=== PATIENT | female | born 1940 | race Caucasian/White ===

== ENCOUNTER → 2016-07-03 | Outpatient (CLI) | payer MEDICARE, BC | LOC: LAB 08:53 | DX: Z51.81 Encounter for therapeutic drug level monitoring (principal); Z79.899 Other long term (current) drug therapy ==

== ENCOUNTER → 2016-07-04 | Outpatient (CLI) | payer MEDICARE, BC | LOC: LAB 09:50 | DX: M06.9 Rheumatoid arthritis, unspecified (principal); Z79.899 Other long term (current) drug therapy ==

== ENCOUNTER → 2016-09-17 | Outpatient (CLI) | payer MEDICARE, BC | LOC: LAB 08:01 | DX: I10 Essential (primary) hypertension (principal) ==

== ENCOUNTER → 2016-10-01 | Outpatient (CLI) | payer MEDICARE, BC | LOC: LAB 07:18 | DX: E87.1 Hypo-osmolality and hyponatremia (principal) ==

== ENCOUNTER → 2016-10-04 | Outpatient (CLI) | payer MEDICARE, BC | LOC: LAB 08:30 | DX: R41.0 Disorientation, unspecified (principal) ==

== ENCOUNTER → 2016-10-30 | Outpatient (CLI) | payer MEDICARE, BC | LOC: LAB 09:21 | DX: E87.1 Hypo-osmolality and hyponatremia (principal) ==

== ENCOUNTER → 2016-11-07 | Outpatient (CLI) | payer MEDICARE, BC | LOC: LAB 09:54 | DX: E87.1 Hypo-osmolality and hyponatremia (principal) ==

== ENCOUNTER → 2016-11-14 | Outpatient (CLI) | payer MEDICARE, BC | LOC: LAB 10:53 | DX: Z01.89 Encounter for other specified special examinations (principal) ==

== ENCOUNTER → 2016-12-31 | Outpatient (CLI) | payer MEDICARE, BC ==
[2016-12-31 11:43] LABS: BUN/CREATININE RATIO 17.5 (6.0-26.0); POTASSIUM 3.2 mmol/L (3.6-5.0)
== END ==
LOC: LAB 11:09
PROVIDERS: Family Medicine
DX: E87.1 Hypo-osmolality and hyponatremia (principal)

== ENCOUNTER → 2017-01-15 | Outpatient (CLI) | payer MEDICARE, BC ==
[2017-01-15 11:20] LABS: BUN/CREATININE RATIO 17.9 (6.0-26.0); CALCIUM 9.8 mg/dL (8.4-10.2); POTASSIUM 4.5 mmol/L (3.6-5.0)
== END ==
LOC: LAB 09:22
PROVIDERS: Family Medicine
DX: E87.6 Hypokalemia (principal)

== ENCOUNTER → 2017-02-12 | Outpatient (CLI) | payer MEDICARE, BC ==
[2017-02-12 10:50] LABS: BUN/CREATININE RATIO 16.8 (6.0-26.0); CALCIUM 9.6 mg/dL (8.4-10.2); POTASSIUM 3.9 mmol/L (3.6-5.0)
== END ==
LOC: LAB 09:56
PROVIDERS: Family Medicine
DX: E87.1 Hypo-osmolality and hyponatremia (principal)

== ENCOUNTER → 2017-03-01 | Outpatient (CLI) | payer MEDICARE, BC ==
[2017-03-01 08:43] LABS: BUN/CREATININE RATIO 17.7 (6.0-26.0); CALCIUM 9.5 mg/dL (8.4-10.2); POTASSIUM 3.6 mmol/L (3.6-5.0)
== END ==
LOC: LAB 08:18
PROVIDERS: Family Medicine
DX: I10 Essential (primary) hypertension (principal)

== ENCOUNTER → 2017-03-15 | Outpatient (CLI) | payer MEDICARE, BC | LOC: RAD 13:53 | DX: M79.661 Pain in right lower leg (principal); M79.89 Other specified soft tissue disorders ==

== ENCOUNTER → 2017-03-19 | Outpatient (CLI) | payer MEDICARE, BC ==
[2017-03-19 09:13] LABS: HEMATOCRIT 32.8 % (37.0-47.0); HEMOGLOBIN 10.4 g/dL (12.5-16.0); MEAN PLATELET VOLUME 10.4 fl (7.4-10.4); RED BLOOD COUNT 3.51 M/mm3 (4.10-5.30); RED CELL DISTRIBUTION WIDTH 15.7 % (11.5-14.5); WHITE BLOOD COUNT 9.5 K/mm3 (4.8-10.8)
[2017-03-19 09:21] LABS: BUN/CREATININE RATIO 15.1 (6.0-26.0); CALCIUM 9.4 mg/dL (8.4-10.2); POTASSIUM 3.5 mmol/L (3.6-5.0)
== END ==
LOC: LAB 08:36
DX: R22.41 Localized swelling, mass and lump, right lower limb (principal)

== ENCOUNTER 2017-03-29 16:22 | Emergency (ER) | payer MEDICARE, BC ==
[~2017-03-29] VITALS: Ht 149.9 cm; Wt 50.0 kg
[2017-03-29] MEDS ORDERED: BENADRYL 5050 MG/CAP ×2 (16:40)
[2017-03-29] MEDS ORDERED: MIRAPEX1 MG PO (16:41)
[2017-03-29] MEDS ORDERED: GOOD NEIGHBOR P20 MG PO (16:41)
[2017-03-29] MEDS ORDERED: PREDNISONE 5MG5 MG PO (16:42)
[2017-03-29] MEDS ORDERED: POTASSIUM CHLO10 ME7 PO (16:42)
[2017-03-29] MEDS ORDERED: VITAMIN D32000 UNIT PO (16:43)
[2017-03-29] MEDS ORDERED: NORCO 325 MG-7.1 TA1 PO (16:43)
[2017-03-29] MEDS ORDERED: CELECOXIB200 M1 PO (16:43)
[2017-03-29] MEDS ORDERED: CLARITIN 1010 MG/TAB PO (16:44)
[2017-03-29] MEDS ORDERED: ARAVA 20MG TABL20 MG PO (16:44)
[2017-03-29] MEDS ORDERED: LEVO-T88 MCG PO (16:44)
[2017-03-29] MEDS ORDERED: CLOPIDOGREL75 M2 PO (16:44)
[2017-03-29] MEDS ORDERED: ADULT ASPIRIN R81 MG PO (16:44)
[2017-03-29] MEDS ORDERED: FERROUS SULFAT325 M4 PO (16:45)
[2017-03-29] MEDS ORDERED: NORVASC2.5 MG PO (16:45)
[2017-03-29] MEDS ORDERED: DITROPAN XL 5MG5 M1 PO (16:45)
[2017-03-29] MEDS ORDERED: CRANBERRY FRUI425 MG PO (16:45)
[2017-03-29 17:17] LABS: HEMATOCRIT 33.9 % (37.0-47.0); HEMOGLOBIN 10.7 g/dL (12.5-16.0); MEAN CELL VOLUME 96 fl (78-100); MEAN CORPUSCULAR HEMOGLOBIN 30 pg (27-31); MEAN CORPUSCULAR HGB CONC 32 g/dL (33-37); MEAN PLATELET VOLUME 10.4 fl (7.4-10.4); PLATELET COUNT 179 K/mm3 (130-400); RED BLOOD COUNT 3.54 M/mm3 (4.10-5.30); RED CELL DISTRIBUTION WIDTH 15.7 % (11.5-14.5); WHITE BLOOD COUNT 7.7 K/mm3 (4.8-10.8)
[2017-03-29 17:25] LABS: ALBUMIN 3.6 g/dL (3.5-5.0); BUN/CREATININE RATIO 14.9 (6.0-26.0); CALCIUM 9.3 mg/dL (8.4-10.2); TOTAL BILIRUBIN 0.7 mg/dL (0.2-1.3); TOTAL PROTEIN 6.9 g/dL (6.3-8.2)
[2017-03-29 17:32] LABS: LYMPHOCYTE 13 % (20-51); NEUTROPHILS 80 % (42-75)
[2017-03-29 17:33] LABS: MONOCYTE 6 % (3-10)
[2017-03-29] MEDS ORDERED: CEPHALEXIN500 M1 PO (17:49)
[2017-03-29] MEDS ORDERED: VIBRAMYCIN HYC100 MG PO (17:49)
[2017-03-29 18:05] VITALS: BP 158/70
== END 2017-03-29 18:05 | disposition home or self-care (01) ==
LOC: ED 16:22
PROVIDERS: Physician Assistant
DX: L03.116 Cellulitis of left lower limb (principal); L03.115 Cellulitis of right lower limb; I10 Essential (primary) hypertension; G25.81 Restless legs syndrome; K21.9 Gastro-esophageal reflux disease without esophagitis; E03.9 Hypothyroidism, unspecified; Z86.73 Personal history of transient ischemic attack (TIA), and cerebral infarction without residual deficits; M06.9 Rheumatoid arthritis, unspecified; Z79.02 Long term (current) use of antithrombotics/antiplatelets; Z79.82 Long term (current) use of aspirin; J30.9 Allergic rhinitis, unspecified

== ENCOUNTER → 2017-04-02 | Outpatient (CLI) | payer MEDICARE, BC ==
[2017-03-29 18:05] VITALS: BP 158/70
[~2017-04-02] MED LIST: ADULT ASPIRIN R81 MG PO; ARAVA 20MG TABL20 MG PO; BENADRYL 5050 MG/CAP; CELECOXIB200 M1 PO; CEPHALEXIN500 M1 PO; CLARITIN 1010 MG/TAB PO; CLOPIDOGREL75 M2 PO; CRANBERRY FRUI425 MG PO; DITROPAN XL 5MG5 M1 PO; FERROUS SULFAT325 M4 PO; GOOD NEIGHBOR P20 MG PO; LEVO-T88 MCG PO; MIRAPEX1 MG PO; NORCO 325 MG-7.1 TA1 PO; NORVASC2.5 MG PO; POTASSIUM CHLO10 ME7 PO; PREDNISONE 5MG5 MG PO; VIBRAMYCIN HYC100 MG PO; VITAMIN D32000 UNIT PO
[2017-04-02 10:28] LABS: BUN/CREATININE RATIO 19.6 (6.0-26.0); CALCIUM 9.3 mg/dL (8.4-10.2); POTASSIUM 3.7 mmol/L (3.6-5.0)
== END ==
LOC: LAB 09:42
PROVIDERS: Family Medicine
DX: E87.1 Hypo-osmolality and hyponatremia (principal)

== ENCOUNTER → 2017-04-10 | Outpatient (CLI) | payer MEDICARE, BC ==
[2017-03-29 18:05] VITALS: BP 158/70
[2017-04-10 10:18] LABS: BUN/CREATININE RATIO 18.8 (6.0-26.0); CALCIUM 9.8 mg/dL (8.4-10.2); POTASSIUM 3.6 mmol/L (3.6-5.0)
== END ==
LOC: LAB 09:33
PROVIDERS: Family Medicine
DX: E87.1 Hypo-osmolality and hyponatremia (principal)

== ENCOUNTER 2017-05-06 17:03 | Emergency (ER) | payer MEDICARE, BC ==
[2017-05-06] MEDS ORDERED: BACITRACIN TOPIC1 T1 TOP (18:14)
[2017-05-06] MEDS ORDERED: OXYCODONE PO ×2 (18:14→20:03)
[2017-05-06] MEDS ORDERED: CLEOCIN HCL300 MG PO (20:03)
[2017-05-06 20:15] VITALS: BP 140/74
== END 2017-05-06 20:15 | disposition home or self-care (01) ==
LOC: ED 17:03
DX: L03.116 Cellulitis of left lower limb (principal); L03.115 Cellulitis of right lower limb; L97.819 Non-pressure chronic ulcer of other part of right lower leg with unspecified severity; L97.829 Non-pressure chronic ulcer of other part of left lower leg with unspecified severity; L89.899 Pressure ulcer of other site, unspecified stage; I87.2 Venous insufficiency (chronic) (peripheral); S80.812A Abrasion, left lower leg, initial encounter; I10 Essential (primary) hypertension; M06.9 Rheumatoid arthritis, unspecified; G89.29 Other chronic pain; Z79.02 Long term (current) use of antithrombotics/antiplatelets; Z79.82 Long term (current) use of aspirin; Z88.2 Allergy status to sulfonamides; Z88.8 Allergy status to other drugs, medicaments and biological substances

== ENCOUNTER 2017-06-12 13:21 | Inpatient (IN) | payer MEDICARE, BC ==
[~2017-06-12] VITALS: Ht 149.9 cm; Wt 44.1 kg
[~2017-06-12 13:21] MED LIST changes: +AMERINET CHOICE1 PD4 IV; +ATORVASTATIN CA10 MG PO; +AUGMENTIN 875-1 EAC1 PO; +BACITRACIN TOPIC1 T1 TOP; +BENADRYL 5050 MG/CAP PO; +BENADRYL PO; +BIOTENE DRY MO237 ML MM; +CELEBREX 200MG200 MG PO; +CLEOCIN HCL300 MG PO; +CULTURELLE1 EACH PO; +FENTANYL1 EAC3 TD; +FEOSOL325 MG PO; +GENTAMICIN SULFA TP; +LEADER C 250 MG1 TAB PO; +LEVAQUIN 750MG750 M1 PO; +MASON NATURAL2000 IU PO; +MICONAZOLE NITR30 GM TP; +OXYCODONE PO; +SANTYL30 GM TP
[2017-06-12 13:25] VITALS: BP 165/81
[2017-06-12 15:30] LABS: PH-URINE 6.5 (5.0 - 8.0); URINE APPEARANCE CLEAR; URINE COLOR YELLOW
[2017-06-12 15:31] LABS: URINE BILIRUBIN NEGATIVE (NEGATIVE); URINE BLOOD NEGATIVE (NEGATIVE); URINE GLUCOSE NEGATIVE (NEGATIVE); URINE KETONE NEGATIVE (NEGATIVE); URINE LEUKOCYTE ESTERASE 1+ (NEGATIVE); URINE NITRATE NEGATIVE (NEGATIVE); URINE PROTEIN(semi-quant) NEGATIVE (NEGATIVE); URINE UROBILINOGEN NORMAL (NORMAL)
[2017-06-12 16:01] LABS: HEMATOCRIT 29.7 % (37.0-47.0); HEMOGLOBIN 9.2 g/dL (12.5-16.0); MEAN CELL VOLUME 93 fl (78-100); MEAN CORPUSCULAR HEMOGLOBIN 29 pg (27-31); MEAN CORPUSCULAR HGB CONC 31 g/dL (33-37); MEAN PLATELET VOLUME 10.1 fl (7.4-10.4); PLATELET COUNT 199 K/mm3 (130-400); RED BLOOD COUNT 3.21 M/mm3 (4.10-5.30); RED CELL DISTRIBUTION WIDTH 15.4 % (11.5-14.5); WHITE BLOOD COUNT 7.1 K/mm3 (4.8-10.8)
[2017-06-12 16:05] LABS: ALBUMIN 2.5 g/dL (3.5-5.0); BUN/CREATININE RATIO 11.7 (6.0-26.0); CALCIUM 8.4 mg/dL (8.4-10.2); POTASSIUM 3.7 mmol/L (3.6-5.0); TOTAL BILIRUBIN 0.3 mg/dL (0.2-1.3); TOTAL PROTEIN 5.3 g/dL (6.3-8.2)
[2017-06-12 17:52] LABS: LYMPHOCYTE 12 % (20-51); MONOCYTE 5 % (3-10); NEUTROPHILS 82 % (42-75)
[2017-06-12 18:47] VITALS: BP 146/82
[2017-06-13 06:33] VITALS: BP 182/98
[2017-06-13 10:00] VITALS: BP 161/82
[2017-06-13 18:49] VITALS: BP 155/85
[2017-06-14 06:40] VITALS: BP 163/81
[2017-06-14 18:00] VITALS: BP 166/91
[2017-06-15 06:40] VITALS: BP 174/94
[2017-06-15 18:52] VITALS: BP 146/81
[2017-06-16 06:21] VITALS: BP 141/75
[2017-06-16 18:57] VITALS: BP 123/76
[2017-06-17 06:21] VITALS: BP 171/87
[2017-06-17 07:36] LABS: BASO # 0.1 (0.02-0.10); EOS # 0.6 (0.04-0.40); EOS % 7.7 % (1.0-5.0); HEMATOCRIT 30.1 % (37.0-47.0); HEMOGLOBIN 9.7 g/dL (12.5-16.0); LYMPH# 1.1 (1.50-4.00); MEAN CELL VOLUME 91 fl (78-100); MEAN CORPUSCULAR HEMOGLOBIN 29 pg (27-31); MEAN CORPUSCULAR HGB CONC 32 g/dL (33-37); MEAN PLATELET VOLUME 10.3 fl (7.4-10.4); MONO # 0.7 (0.20-0.80); PLATELET COUNT 202 K/mm3 (130-400); RED BLOOD COUNT 3.32 M/mm3 (4.10-5.30); RED CELL DISTRIBUTION WIDTH 15.9 % (11.5-14.5); WHITE BLOOD COUNT 7.5 K/mm3 (4.8-10.8)
[2017-06-17 07:59] LABS: ALBUMIN 2.6 g/dL (3.5-5.0); BUN/CREATININE RATIO 14.1 (6.0-26.0); CALCIUM 8.6 mg/dL (8.4-10.2); POTASSIUM 3.6 mmol/L (3.6-5.0); TOTAL BILIRUBIN 0.3 mg/dL (0.2-1.3); TOTAL PROTEIN 5.5 g/dL (6.3-8.2)
[2017-06-17 14:32] LABS: PH-URINE 5.5 (5.0 - 8.0); URINE APPEARANCE HAZY; URINE BILIRUBIN NEGATIVE (NEGATIVE); URINE BLOOD NEGATIVE (NEGATIVE); URINE COLOR YELLOW; URINE GLUCOSE NEGATIVE (NEGATIVE); URINE KETONE NEGATIVE (NEGATIVE); URINE LEUKOCYTE ESTERASE NEGATIVE (NEGATIVE); URINE NITRATE NEGATIVE (NEGATIVE); URINE PROTEIN(semi-quant) NEGATIVE (NEGATIVE); URINE UROBILINOGEN NORMAL (NORMAL)
[2017-06-17 14:33] LABS: URINE MUCUS PRESENT (NOT PRESENT)
[2017-06-17 19:30] VITALS: BP 169/95
[2017-06-18 06:43] VITALS: BP 161/89
[2017-06-18 18:49] VITALS: BP 148/89
[2017-06-19 06:18] VITALS: BP 148/87
[2017-06-19 18:44] VITALS: BP 142/83
[2017-06-20 06:23] VITALS: BP 157/86
[2017-06-20 18:42] VITALS: BP 142/79
[2017-06-21 06:28] VITALS: BP 157/79
[2017-06-21 18:24] VITALS: BP 125/75
[2017-06-22 06:41] VITALS: BP 152/85
[2017-06-22 19:19] VITALS: BP 119/73
[2017-06-23 06:46] VITALS: BP 131/72
[2017-06-23 11:31] LABS: PH-URINE 5.5 (5.0 - 8.0); URINE APPEARANCE CLEAR; URINE BILIRUBIN NEGATIVE (NEGATIVE); URINE COLOR YELLOW; URINE GLUCOSE NEGATIVE (NEGATIVE); URINE KETONE NEGATIVE (NEGATIVE); URINE PROTEIN(semi-quant) NEGATIVE (NEGATIVE); URINE UROBILINOGEN NORMAL (NORMAL)
[2017-06-23 11:32] LABS: URINE BLOOD 50 ery/uL (NEGATIVE); URINE LEUKOCYTE ESTERASE 1+ (NEGATIVE); URINE NITRATE NEGATIVE (NEGATIVE)
[2017-06-23 18:18] VITALS: BP 151/86
[2017-06-24 06:46] LABS: HEMATOCRIT 24.4 % (37.0-47.0); MEAN CELL VOLUME 90 fl (78-100); MEAN CORPUSCULAR HEMOGLOBIN 29 pg (27-31); MEAN CORPUSCULAR HGB CONC 33 g/dL (33-37); MEAN PLATELET VOLUME 10.5 fl (7.4-10.4); PLATELET COUNT 195 K/mm3 (130-400); RED BLOOD COUNT 2.72 M/mm3 (4.10-5.30); WHITE BLOOD COUNT 9.3 K/mm3 (4.8-10.8)
[2017-06-24 07:12] VITALS: BP 159/84
[2017-06-24 07:19] LABS: ALBUMIN 2.3 g/dL (3.5-5.0); BUN/CREATININE RATIO 14.5 (6.0-26.0); CALCIUM 8.4 mg/dL (8.4-10.2); POTASSIUM 3.5 mmol/L (3.6-5.0); TOTAL BILIRUBIN 0.2 mg/dL (0.2-1.3); TOTAL PROTEIN 4.7 g/dL (6.3-8.2)
[2017-06-24 07:32] LABS: LYMPHOCYTE 16 % (20-51); MONOCYTE 6 % (3-10); NEUTROPHILS 68 % (42-75); OVALOCYTES 1+
[2017-06-24 19:00] VITALS: BP 177/89
[2017-06-25 06:22] VITALS: BP 148/82
[2017-06-25 19:08] VITALS: BP 122/69
[2017-06-26 06:29] VITALS: BP 149/80
[2017-06-26 18:40] VITALS: BP 123/69
[2017-06-27 06:13] LABS: BUN/CREATININE RATIO 16.6 (6.0-26.0); CALCIUM 8.8 mg/dL (8.4-10.2); POTASSIUM 3.6 mmol/L (3.6-5.0)
[2017-06-27 06:23] VITALS: BP 117/63
[2017-06-27] MEDS ORDERED: LEVAQUIN 750MG750 M1 PO (16:05)
[2017-06-27 18:17] VITALS: BP 114/69
[2017-06-28 06:21] VITALS: BP 137/69
== END 2017-06-28 11:44 | DRG 948 ==
LOC: MED/SURG 13:21
PROVIDERS: Family Medicine; Nurse Practitioner; ADMIT Physician Assistant
DX: R53.81 Other malaise (principal); L03.116 Cellulitis of left lower limb; E87.1 Hypo-osmolality and hyponatremia; L03.115 Cellulitis of right lower limb; Z66 Do not resuscitate; E03.9 Hypothyroidism, unspecified; R41.3 Other amnesia; S12.121D Other nondisplaced dens fracture, subsequent encounter for fracture with routine healing; Z86.73 Personal history of transient ischemic attack (TIA), and cerebral infarction without residual deficits; L89.321 Pressure ulcer of left buttock, stage 1; G25.81 Restless legs syndrome
CPT/HCPCS: J1885; J2543; J7512

== ENCOUNTER 2017-06-29 10:03 | Emergency (ER) | payer MEDICARE, BC ==
[2017-06-29 10:52] LABS: HEMATOCRIT 26.9 % (37.0-47.0); HEMOGLOBIN 8.5 g/dL (12.5-16.0); MEAN CELL VOLUME 92 fl (78-100); MEAN CORPUSCULAR HEMOGLOBIN 29 pg (27-31); MEAN CORPUSCULAR HGB CONC 32 g/dL (33-37); MEAN PLATELET VOLUME 10.4 fl (7.4-10.4); PLATELET COUNT 251 K/mm3 (130-400); RED BLOOD COUNT 2.93 M/mm3 (4.10-5.30); RED CELL DISTRIBUTION WIDTH 16.8 % (11.5-14.5); WHITE BLOOD COUNT 12.1 K/mm3 (4.8-10.8)
[2017-06-29 11:02] LABS: BUN/CREATININE RATIO 43.5 (6.0-26.0); CALCIUM 8.7 mg/dL (8.4-10.2); POTASSIUM 3.7 mmol/L (3.6-5.0)
[2017-06-29 11:09] LABS: LYMPHOCYTE 10 % (20-51); MONOCYTE 6 % (3-10); NEUTROPHILS 79 % (42-75)
[2017-06-29 11:11] LABS: HYPOCHROMIA 2+
[2017-06-29 11:49] VITALS: BP 132/68
== END 2017-06-29 14:33 | disposition swing bed (61) ==
LOC: ED 10:03
PROVIDERS: Family Medicine
DX: E86.9 Volume depletion, unspecified (principal); D64.9 Anemia, unspecified; R00.0 Tachycardia, unspecified; E87.1 Hypo-osmolality and hyponatremia; M06.9 Rheumatoid arthritis, unspecified; L97.929 Non-pressure chronic ulcer of unspecified part of left lower leg with unspecified severity; L97.919 Non-pressure chronic ulcer of unspecified part of right lower leg with unspecified severity; Z86.73 Personal history of transient ischemic attack (TIA), and cerebral infarction without residual deficits; R60.9 Edema, unspecified; R01.1 Cardiac murmur, unspecified; Z79.82 Long term (current) use of aspirin; S12.100D Unspecified displaced fracture of second cervical vertebra, subsequent encounter for fracture with routine healing

== ENCOUNTER 2017-06-29 14:33 | Inpatient (IN) | payer MEDICARE, BC ==
[~2017-06-29] VITALS: Ht 149.9 cm; Wt 44.0 kg
[2017-06-29 14:38] VITALS: BP 132/69
[2017-06-29 16:17] VITALS: BP 132/69
[2017-06-29 18:03] LABS: URINE APPEARANCE HAZY; URINE BILIRUBIN NEGATIVE (NEGATIVE); URINE COLOR YELLOW; URINE GLUCOSE NEGATIVE (NEGATIVE); URINE KETONE 1+ (NEGATIVE); URINE NITRATE NEGATIVE (NEGATIVE); URINE PROTEIN(semi-quant) TRACE mg/dL (NEGATIVE); URINE UROBILINOGEN NORMAL (NORMAL)
[2017-06-29 18:04] LABS: URINE BLOOD TRACE (NEGATIVE); URINE LEUKOCYTE ESTERASE 1+ (NEGATIVE)
[2017-06-29 18:54] VITALS: BP 114/61
--- NOTE | 2017-06-29 19:00 | NUR ---
BEDSIDE REPORT RECIEVED FROM BISHNU MARTIN. PATIENT RESTING IN BED WITH DAUGHTER AT SIDE, CALL LIGHT WITHIN REACH AND BED ALARM ON.
--- NOTE | 2017-06-29 19:45 | NUR ---
hemanth report to Erika GOETZ
--- NOTE | 2017-06-29 21:10 | NUR ---
PATIENT RESTING IN BED. SHIFT ASSESSMENT COMPLETED AT THIS TIME. PATIENT A/O X4. RATING PAIN 7/10 IN LEFT LEG. LUNGS CTA, DENIES COUGH, REPORTS SHORTNESS OF BREATH WHEN ON SIDE. WOUNDS TO BLE DRESSED. MEPILEX ON COCCYX CDI. NECK BRACE FROM PREVIOUS INJURY CDI. FENTANYL PATCH TO LEFT SHOULDER CDI. PATIENT RESTRICTED TO 1000CC WATER FOR 24 HOURS WITH OTHER LIQUIDS AD FROILAN. HS MEDICATIONS GIVEN CRUSHED WITH APPLESAUCE. PATIENT WITHOUT FURTHER NEEDS, WILL CONTINUE TO MONITOR. CALL LIGHT WITHIN REACH AND BED ALARM ON.
[2017-06-30 02:04] VITALS: BP 116/62
--- NOTE | 2017-06-30 02:05 | NUR ---
PATIENT'S CHAIR ALARM SOUNDS, SO THIS RN GOES TO PATIENT'S ROOM TO INVESTIGATE. PATIENT IS OBSERVED SITTING ON THE WINDOWSILL NEXT TO HER RECLINER WITH THE FOOTREST STILL IN AN UP POSITION. THIS RN ASKS PATIENT WHERE IS SHE GOING, AND PATIENT TALKS GIBBERISH. THIS RN IS WALKING INTO PATIENT'S ROOM AND TOWARDS HER, PATIENT LURCHES HER BODY OFF OF THE WINDOWSILL JUST THIS NURSE GETS TO PATIENT. PATIENT'S BOTTOM LANDS ON THE HEATER DIRECTLY UNDER THE WINDOWSILL, AND SHE LURCHES AGAIN. THIS RN ATTEMPTS TO HUG PATIENT TO KEEP HER FROM FALLING, BUT IS ABLE TO ASSIST PATIENT TO THE FLOOR. PATIENT CONTINUES TO TALK GIBBERISH AND DOES NOT ANSWER QUESTIONS APPROPRIATELY. PATIENT'S NURSE, MAMIE IS NOTIFIED OF FALL, AND VITALS ARE OBTAINED. THIS RN AND MAMIE APPLY PATIENT'S GAITBELT AND LIFT HER TO A STANDING POSITION. PATIENT STANDS UP WITHOUT MUCH ASSISTANCE ONCE IN A STANDING POSITION AND THIS RN LOOKS AT PATIENT'S BACK AND BOTTOM FOR ANY SIGNS OF INJURY. PATIENT IS UNABLE TO PINPOINT ANY LOCATION OF PAIN, STATING "I HURT ALL THE TIME". PATIENT IS ASSISTED INTO A SITTING POSITION, AND BISHNU HATCH CHANGES PATIENT INTO GOWN, HER CLOTHES ARE WET FROM KNOCKING HER DRINK OVER, AND SHE ALSO PERFORMS A HEAD TO TOE ASSESSMENT.
--- NOTE | 2017-06-30 02:35 | NUR ---
DR. LEON NOTIFIED OF PATIENT'S FALL. NO INJURIES NOTED AND NO NEW ORDERS.
--- NOTE | 2017-06-30 06:30 | NUR ---
PATIENT'S DAUGHTER CONTACTED AT THE [facility] TO ASSIST WITH PATIENT'S BEHAVIORS. DAUGHTER NOTIFIED THAT STAFF HAD BEEN INTO PATIENT'S ROOM APPROXIMATELY 40 TIMES IN THE LAST 12 HOUR PERIOD. PATIENT'S DAUGHTER STATED SHE WOULD COME UP AND HELP SIT WITH PATIENT.
--- NOTE | 2017-06-30 06:46 | NUR ---
PATIENT'S DAUGHTER HERE TO SIT WITH LUIS AND NOTIFIED OF PATIENT'S FALL.
--- NOTE | 2017-06-30 07:10 | NUR ---
BEDSIDE REPORT GIVEN TO BISHNU GUTIERREZ. PATIENT RESTING IN BED WITH FAMILY AT SIDE, CALL LIGHT WITHIN REACH AND BED ALARM ON.
--- NOTE | 2017-06-30 08:00 | NUR ---
Pt daughter approaches this nurse and reports pt would like to go for a walk. This nurse enters room and pt tells nurse her legs are hurting and she thinks walking it out will help. Pt assisted up and ambulates with standby assist. Pt requires a lot of direction and cueing. Pt states she "just feels sick" and needs to return to room. Pt unable to state what is wrong. Pt begins speaking incomprehensible but continues to return to room and assisted back to bed. Pt daughter at bedside. Pt is able to answer my questions appropraitely but once finished with answer begins speaking incomprehensible again. Pt agrees to attempt to rest and daughter remains at bedside. Fall precautions in place.
--- NOTE | 2017-06-30 10:00 | NUR ---
Assist pt to BR then return to recliner. While in BR, pt produces dark green/black, loose, coffee grounds consistency BM.
--- NOTE | 2017-06-30 10:06 | NUR ---
Pt with c/o extreme pain, "especially in L leg." Reports pain is "right where the dressing is." Suggest that dressing be changed to see if that helps with pain. Pt is accepting of this. Placed santyl to all wound beds, wet/dry dressing and rewrapped with kerlix. Pt continues to c/o increased pain to L leg. Is reminded that fentanyl patch dose was increased and PO pain Rx 2 hours ago. Suggest that lights be turned off and pt lie back and attempt to rest. Pt is agreeable to this, lights out, call light in reach, clarence on bedside table next to pt, bed alarm set, adelso at bedside.
--- NOTE | 2017-06-30 11:00 | NUR ---
Pt calls, upon entering room, pt reports she is unable to remember what she called for but reports that her tongue hurts. Obtain tongue depressor and light, there is no discoloration or injury noted however tongue is very dry. Relay this information to pt and instruct her to drink more gatorade and that pain Rx will continue to make her mouth dry so she should use moisturize mouth often.
--- NOTE | 2017-06-30 12:15 | NUR ---
Pt refuses lunch tray. Reports that she is feeling nauseas and that pain is too much. Pt son voices concerns about possible stroke. Neuros checked at this time, all were negative.
--- NOTE | 2017-06-30 13:20 | NUR ---
Dr. Lake notified that pt has continued to be very anxious and restless. Pt confused at times with slurred speech or incomprehensible speech. Pt reports "feeling like shes gasping for air" and short of breath. Pulse 125 and SP02 98% on room air. Dr Lake notified of the above
--- NOTE | 2017-06-30 13:39 | NUR ---
Pt states cannot chew the ham and requests chicken but grocery store closed. Family bring hamburger but pt refuses to eat it. Family then brought in yogurt smoothie and pt works on this. Pt up in chair for lunch.
--- NOTE | 2017-06-30 15:44 | NUR ---
Neck brace removed per pt and daughter request.
--- NOTE | 2017-06-30 16:00 | NUR ---
Pt daughter at bedside. Explain that pt follows all commands and answers questions r/t stroke eval. Pt is having difficulty with forming words but is able to correct herself when asked to repeat. Explain to daughter that next eval method would be MRI and pt would need to be transferred if family wanted further investigation. Daughter denies this option. Request that all other family members leave room, close blinds and assist pt to lie on R side. Pt closes eyes, daughter remains at bedside.
[2017-06-30 18:45] VITALS: BP 133/53
--- NOTE | 2017-06-30 18:49 | NUR ---
Pt requests to move from recliner into bed. Pt states that she is "ready to go see Regan." Pt noted to be very pale, can hardly keep eyes open. Lips and mouth pale/rivero.
--- NOTE | 2017-06-30 19:18 | NUR ---
Bedside shift report to You Prieto RN
--- NOTE | 2017-06-30 20:00 | NUR ---
PATIENT RESTLESS IN BED AT STATES SHE "JUST WANTS TO BE WITH THE LORD." SHIFT ASSESSMENT COMPLETED AT THIS TIME. PATIENT A/O X4. RATING PAIN 8/10 TO LEFT LEG, PAIN PILL GIVEN. LUNGS CTA, DENIES COUGH, REPORTS SHORTNESS OF BREATH WITH LAYING ON SIDE. PATIENT IS VERY PALE IN COLOR. HEART RATE IS TACHY AND IRREGULAR. BLE ULCER DRESSINGS CDI. COCCYX REDDENED AND PATIENT C/O SEVERE PAIN TO THAT AREA, MEPILEX APPLIED FOR COMFORT. MOUTH DRY, SWABS PROVIDED TO HELP MOISTEN. BRUISE TO LOWER-MID BACK ALONG SPINE. CERVICAL COLLAR REMOVED PER PATIENT AND FAMILY WISHES FOR COMFORT. AIR MATTRESS ON BED TO HELP INCREASE COMFORT TO BONY PROMINANCES. FENTANYL PATCH ON RIGHT SHOULDER CDI. HS MEDICATIONS GIVEN CRUSHED IN APPLESAUCE. FAMILY TO REMAIN AT BEDSIDE ALL NIGHT. PATIENT AND FAMILY WITHOUT FURTHER NEEDS AT THIS TIME, WILL CONTINUE TO MONITOR. CALL LIGHT WITHIN REACH AND BED ALARM TURNED OFF WITH FAMILY EDUCATION AND REQUEST TO NOTIFY STAFF WHEN LEAVING THE ROOM.
--- NOTE | 2017-06-30 23:02 | NUR ---
FAMILY REQUESTING PATIENT RECIEVE LIQUID ATIVAN AND/OR MORPHINE FOR RESTLESSNESS AND UNRELIEVED PAIN.
--- NOTE | 2017-06-30 23:10 | NUR ---
DR. LEON NOTIFIED OF FAMILIES WISHES AND WILL PUT IN ORDERS.
--- NOTE | 2017-07-01 00:12 | NUR ---
PATIENT TO CALL FOR ASSISTANCE TO BATHROOM. PATIENT UNABLE TO URINATE BUT BRIEF WAS WET. PATIENT ASSISTED BACK TO BED. REPORTS NEW PRN PAIN MEDICATION DID NOT HELP AT ALL, HOWEVER PATIENT LOOKS AND ACTS CALMER AND DROWSY. PATIENT ENCOURAGED TO REST. FAMILY AT BEDSIDE. CALL LIGHT WITHIN REACH AND BED ALARM ON. WILL CONTINUE TO MONITOR AND PROVIDE PAIN MEDICATION WHEN AVAILABLE.
[2017-07-01 06:00] VITALS: BP 107/52
[2017-07-01 07:08] LABS: HEMATOCRIT 14.2 % (37.0-47.0); HEMOGLOBIN 4.5 g/dL (12.5-16.0)
--- NOTE | 2017-07-01 07:08 | NUR ---
CLERICAL METHODS ANALYST BRISA CALLED WITH A CRITICAL HGB OF 4.5. THIS VALUE PASSED ON TO PATIENT'S DAY SHIFT NURSE MURALI AND ONCOMING PROVIDER.
--- NOTE | 2017-07-01 07:20 | NUR ---
BEDSIDE REPORT RECEIVED FROM Odin GIMENEZ RN
--- NOTE | 2017-07-01 07:45 | NUR ---
Drake SEGURA APRN IN PATIENT'S ROOM AT THIS TIME. THIS NURSE AND PATIENT'S DAUGHTER KALYAN IN ROOM. PLAN OF CARE DISCUSSED. OPTION FOR PATIENT TO RECEIVE BLOOD TRANSFUSION AND FURTHER TREATMENTS FOR LOW HGB AND GI BLEED DISCUSSED. PATIENT'S DAUGHTER AND PATIENT WISH TO FORGO TREATMENT AND HAVE HOSPICE CARE. PLAN IS FOR PATIENT TO STAY HERE WITH PALLIATIVE CARE.
--- NOTE | 2017-07-01 07:55 | NUR ---
PATIENT LYING IN BED ON RIGHT SIDE WITH MOUTH OPEN. DAUGHTER IN ROOM. MOUTH VERY DRY. PATIENT PALE. RESPIRATIONS EVEN AND UNLABORED. HAS GAUZE WRAPS TO BILAT LOWER EXT. WITH LEGS ELEVATED ON PILLOW. PATIENT ANSWERS QUESTIONS WHEN SPOKEN TO SPEECH MUMMBLED AND DIFFICULT TO UNDERSTAND DUE TO PATIENT'S MOUTH BEING SO DRY BUT DOES SEEM TO ANSWER QUESTIONS APPROPRIATELY. ATTEMPTED TO MOISTEN MOUTH WITH SWAB BUT PATIENT STARTS MOANING AND TRYING TO SPIT OUT SWAB. BIOTENE SPRAYED IN PATIENT'S MOUTH. PATIENT REPORTS HAVING SEVERE PAIN IN BILAT LOWER EXT. REQUESTED PAIN MEDICATION.
--- NOTE | 2017-07-01 08:10 | NUR ---
PATIENT GIVEN 10 MG ROXANOL WITH NO PAIN RELIEF. PER Drake OSBORNE TO GIVE REMAINING 10 MG ROXANOL AT THIS TIME. PER Drake OSBORNE TO INCREASE PATIENT'S ROXANOL TO 20 MG EVERY 1 HOUR. .
--- NOTE | 2017-07-01 10:00 | NUR ---
PATIENT PROVIDED ORAL CARE. BRIEF DRY. PATIENT TURNED ONTO RIGHT SIDE. APPEARS TO BE RESTING COMFORTABLY AFTER BEING REPOSITIONED. PATIENT'S DAUGHTER REPORTS THAT SHE HAS HAD A COUPLE EPISODES WHERE SHE IS COUGHING. INFORMED FAMILY THAT IF SHE CONTINUES TO COUGH OR CHOKE TO INFORM STAFF AND WILL GET ORDER FOR ATROPINE DROPS. PATIENT'S FAMILY REMAINS AT BEDSIDE.
--- NOTE | 2017-07-01 10:00 | NUR ---
Clerical error made during registration. Patient should have been swing bed from admission. Correction made today.
--- NOTE | 2017-07-01 11:15 | NUR ---
PATIENT STARTING TO CHOKE AND COUGH MORE. ORDER RECEIVED FOR ATROPINE DROPS. ATROPINE DROPS ADMINISTERED. PATIENT REPOSITIONED. FAMILY IN ROOM.
--- NOTE | 2017-07-01 15:00 | NUR ---
THIS NURSE AND BISHNU MARTIN IN PATIENT'S ROOM TO TURN AND GIVE PAIN MEDICATION. PATIENT NO LONGER ANSWERING QUESTIONS, ALWAYS HAS EYES PARTIALLY OPEN. DOES WIDEN EYES WHEN BEING TURNED. PROVIDED PRN ROXANOL AND ATROPINE EYE DROPS. PATIENT'S BRIEF SATURATED IN URINE. CHANGED BRIEF AND PROVIDED MURTAZA CARE. PATIENT TURNED ONTO RIGHT SIDE. PATIENT STARTING TO HAVE PROLONGED TIME BETWEEN RESPIRATIONS AND RATTLING HEARD WITH RESPIRATIONS. PATIENT RESTING COMFORTABLY AFTER ROXANOL AND BEING REPOSITIONED. PATIENT'S FAMILY IN ROOM.
--- NOTE | 2017-07-01 17:30 | NUR ---
THIS NURSE AND BISHNU OROZCO IN WITH PATIENT. ORAL CARE PROVIDED. PATIENT GIVEN ROXANOL AND ATROPINE DROPS. PATIENT OPENS EYES WHEN SPOKEN TO AND SHAKES HEAD YES OR NO WHEN ASKED QUESTIONS. PATIENT'S BRIEF DRY. POSITIONED ONTO LEFT SIDE. PATIENT RESTING PEACEFULLY AFTER BEING REPOSITIONED IN BED. FAMILY REMAINS IN ROOM.
--- NOTE | 2017-07-01 21:46 | NUR ---
Pt lying R side upon entering room. Does not respond to verbal ques. Mouth open, face gaunt, pale and sunken. Pt does flicker eye lids in response to turning onto L side. No further responses. Son at bedside.
--- NOTE | 2017-07-01 23:56 | NUR ---
Mehreen Burnham APRN at pt bedside. Reports pt had agonal breathing for several minutes prior to pronouncing . Witnessed and confirmed final breath and no heart sounds at this time. Several family members at bedside upon pt her passing.
--- NOTE | 2017-07-02 00:21 | NUR ---
Contacted [facility], pt is not a candidate for organ, eye or tissue donation. Pt Son in law reports that he contacted [employer] deputy district customs director in [place] who will contact [facility] to picker / packer the pt body.
--- NOTE | 2017-07-02 00:45 | NUR ---
Rep from [facility] transports pt from facility on behalf of [facility] [place].
== END 2017-07-02 00:45 | disposition expired | DRG 948 ==
LOC: MED/SURG 14:33
PROVIDERS: ADMIT Family Medicine
DX: R53.81 Other malaise (principal); E87.1 Hypo-osmolality and hyponatremia; Z51.5 Encounter for palliative care; L97.829 Non-pressure chronic ulcer of other part of left lower leg with unspecified severity; L97.819 Non-pressure chronic ulcer of other part of right lower leg with unspecified severity; K92.1 Melena; F05 Delirium due to known physiological condition; G89.29 Other chronic pain; M54.9 Dorsalgia, unspecified; M79.662 Pain in left lower leg; M06.9 Rheumatoid arthritis, unspecified; Z86.73 Personal history of transient ischemic attack (TIA), and cerebral infarction without residual deficits; D64.9 Anemia, unspecified; E86.9 Volume depletion, unspecified
CPT/HCPCS: J2060; J7512